=== PATIENT | female | born 1985 | race Hispanic/Latino ===

== ENCOUNTER 2022-08-15 03:17 | Emergency (ER) | payer OTHER ==
[~2022-08-15] VITALS: Ht 160 cm; Wt 70.3 kg
[2022-08-15 03:19] VITALS: BP 167/111
[2022-08-15] MEDS ORDERED: IBUPROFEN 800 MG TAB PO ONE (04:00)
[2022-08-15] MEDS ORDERED: OXYC-38 PO (05:39)
== END 2022-08-15 05:42 | disposition home or self-care (01) ==
LOC: EDH 03:17
DX: S30.0XXA Contusion of lower back and pelvis, initial encounter (principal); F17.200 Nicotine dependence, unspecified, uncomplicated; W07.XXXA Fall from chair, initial encounter; Y93.89 Activity, other specified; Y92.89 Other specified places as the place of occurrence of the external cause; Y99.8 Other external cause status
CPT/HCPCS: 72110; 72170; 72220; 81025